=== PATIENT | female | born 1935 | race Caucasian/White ===

== ENCOUNTER 2017-01-22 00:33 | Emergency (ER) | payer MEDICARE, OTHER ==
[~2017-01-22] VITALS: Ht 157.5 cm; Wt 67.8 kg
[2017-01-22 00:33] VITALS: Ht 157.5 cm; Wt 67.8 kg
[~2017-01-22 00:33] MED LIST: ASPI-557 PO; CEFD300C3 PO; DILT120C4 PO; FAMO20TA6 PO; HYDR25TA PO; LEVO88TA41 PO; LISI-621 PO; MULT-65 PO; SERT-80 PO
--- OUTSIDE RECORDS SUMMARY | 2017-01-22 00:37 | XMS REPORT | Continuity of Care Document ---
Author Author [facility] Organization [facility] Address Unknown Phone Unavailable Allergies Medications Problems Procedures Results Test Result Range METABOLIC PANEL, BASIC - 06/29/12 14:25 POTASSIUM 3.6 mmol/L 3.5-5.3 EST GFR (MDRD) > 60 mL/min > 59 ANION GAP 7 mmol/L 5-15 EST CrCl (CG) 54 mL/min > 59 GLUCOSE 110 mg/dL 70-99 CALCIUM 9.1 mg/dL 8.5-10.1 BLOOD UREA NITROGEN 15 mg/dL 7-20 CREATININE 0.7 mg/dL 0.6-1.0 SODIUM 139 mmol/L 135-148 CHLORIDE 103 mmol/L 98-110 CARBON DIOXIDE 29 mmol/L 21-32 CBC - 06/29/12 14:25 MEAN CELL HGB 30.1 pg 27.0-33.0 MEAN CELL HGB CONCENTRATION 34.5 g/dl 32.0-36.0 MEAN CELL VOLUME 87.4 fl 80.0-100.0 RED BLOOD CELL 4.61 m/cumm 4.00-6.00 RED CELL DISTRIBUTION WIDTH 13.1 % 11.0- 15.6 WHITE BLOOD CELL 7.3 k/cumm 5.0-10.0 HEMOGLOBIN 13.9 gm/dL 12.0-16.0 HEMATOCRIT 40.3 % 37.0-47.0 PLATELET COUNT 258 k/cumm 150-450 HGB HCT - 07/04/12 12:12 MEAN CELL VOLUME 81.3 fl 80.0-100.0 HEMOGLOBIN 14.6 gm/dL 12.0-16.0 HEMATOCRIT 40.4 % 37.0-47.0 Encounters ACCT No. Visit Date/Time Discharge Status Pt. Type Provider Facility Loc./Unit Complaint [id number] 07/04/2012 05:14:00 2011 13:45:00 DIS Outpatient Roberto PATINO, Andreas Smith [facility] W.OPRA [id number] 06/29/2012 13:34:00 2011 13:34:00 DIS Outpatient Roberto PATINO, [facility] ADRIAN
--- OUTSIDE RECORDS SUMMARY | 2017-01-22 00:37 | XMS REPORT | Continuity of Care Document ---
Author Author Ivan [facility] Organization [facility] Address Unknown Phone Unavailable Support Name Relationship Address Phone OLIVERIOVERA COYNE DO Caregiver [address] [place] [phone] SHIRA ESPINOZA MD Caregiver [address] [place] [address] PAUL ALEXANDER Next Of Kin Unknown [phone] CELL Insurance Providers Payer Name Policy Number Subscriber Name Relationship Medicare [id number] Cheryl Lares 19 Self [facility] Sbc/b [id number] Cheryl Lares 19 Self Advance Directives Directive Response Recorded Date/Time Advanced Directives Type DNR Documentation Living Will DPOA for Healthcare 7:57pm Ordered Resuscitation Status Full Code 03/09/14 7:10pm Resuscitation Documents on File Y "I DO WANT TO BE RESUSCITATED ON THIS VISIT " 03/09/14 7:57pm Problems Medical Problems Problem Onset Date Status VOMITING/DIARRHEA Unknown Active Diarrhea Unknown Active Vomiting Unknown Active Chest pain, rule out acute myocardial infarction Unknown Active Sciatic nerve pain Unknown Active Sciatic nerve pain Unknown Active Lumbar disc herniation with radiculopathy 09/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 Dizziness Unknown Active Vomiting Unknown Active Medications Medication Dose Route Sig Days/Qty Instructions Order Date Discontinued Date Status Levothyroxine Sodium 88 Mcg PO BEFORE BREAKFAST 1 Qty 11/18/13 Active Lisinopril/Hydrochlorothiazide 1 Tab PO TWICE A DAY 11/18/13 Active Sertraline Hcl 50 Mg PO DAILY 11/18/13 Active Aspirin 325 Mg PO DAILY 11/18/13 03/10/14 Discontinued Diltiazem Hcl 120 Mg PO DAILY 03/09/14 Active Famotidine 20 Mg PO BEDTIME 03/09/14 Active Hydrocodone/Acetaminophen 1 Tab PO Q4H 09/03/14 09/06/14 Discontinued Ibuprofen 4 Tab PO Every 8 Hours PRN PAIN 3 Days 09/03/14 09/06/14 Discontinued Hydrocodone/Acetaminophen 1-2 Tab PO Every 6 Hours PRN PAIN 60 Qty 01/15 Active Potassium Chloride 20 Meq PO TWICE DAILY WITH MEALS 40 Qty 09/06/14 Active Multivitamin 1 Tab PO DAILY 11/03/14 Active Aspirin 1 Tab PO DAILY 11/03/14 Active Ibuprofen 1 Tab PO NEEDED PRN 11/03/14 Active Calcium Carbonate 11/03/14 Active Social History Social History Problem Response Recorded Date/Time Hx Alcohol Use No 11/03/2014 6:57pm Has the pt used tobacco in the last 12 months No 09/04/2014 3:54pm Tobacco Usage none 03/10/2014 12:53am Query Response Start Date Stop Date Smoking Status Never smoker Hospital Discharge Instructions Instructions: Care Instructions: Reason for Hospitalization: INTRACTABLE BACK PAIN I was in the hospital because (patient own words): "I HAVE INTRACTABLE AND LEFT LEG PAIN" Follow Up Appointments: Follow up with Dr. Kaur tomorrow (Sep.07) at 1:00pm, in his office located at [address] [place] [address] [facility] [place] [address] . Follow up with Dr. Ballesteros in her office on 09/13/2014 at 3:00pm. Patient Instructions: Bring the disk copy of your MRI results to your doctor appointment with Dr. Kaur. General Information: Take Potassium 20mEq 1 po 2 x a day x 3 days then daily. Will check BMP next week in office. Condition at time of discharge: Good Notify Physician If: any further stroke symptoms Condition at time of discharge: Good 12.6 Congenital Heart Disease Screening Result: Pass Plan of Care Discharge Date 09/06/14 3:20pm Instructions/Education Provided DI for Spinal and Epidural Anesthesia DI for Herniated Disc Prescriptions See Medications Section Functional Status Query Response Date Recorded Physical Hygiene Self November 03, 2014 6:57pm Disabilities Hearing March 10, 2014 5:15pm Devices Used Dentures March 10, 2014 5:15pm Dressing Self March 10, 2014 5:15pm Ambulation Self March 10, 2014 5:15pm Diet Self March 10, 2014 5:15pm Mental Status Alert Oriented March 10, 2014 5:15pm Disabilities Hearing March 10, 2014 5:15pm Devices Used Dentures March 10, 2014 5:15pm Physical Hygiene Self November 03, 2014 6:57pm Dressing Self March 10, 2014 5:15pm Ambulation Self March 10, 2014 5:15pm Diet Self March 10, 2014 5:15pm Allergies, Adverse Reactions, Alerts Allergen Type Severity Reaction Status Last Updated Phenytoin Sodium Extended Adverse Reaction Unknown Active 11/03/14 phenytoin sodium Adverse Reaction Unknown Active 11/03/14 Penicillin Adverse Reaction Unknown Active 11/03/14 Immunizations Name Given Type Hx Influenza Vaccination Y 2013 Historical Hx Pneumococcal Vaccination No Historical Hx Influenza Vaccination Y 2013 Historical Vital Signs Acute Vital Signs Vital Response Date/Time Temperature (Fahrenheit) 97.4 deg F (96.8 - 99.1) Temperature (Calculated Celsius) 36.48672 degrees C (36.0 - 37.3) Pulse Rate (adult) 76 bpm (60 - 100) Respiratory Rate 12 breaths/min (10 - 20) O2 Sat by Pulse Oximetry 98 % (90 - 100) Blood Pressure 185/85 mm Hg Height 5 ft 2 in Weight 155 lb Body Mass Index 28.0 kg/m^2 Results Test Source Date Result Interp. Ref. Range Comments Activated Partial Thromboplast Time March 09, 2014 4:25pm 29.1 SEC N 24- 36 Alanine Aminotransferase (ALT/SGPT) November 03, 2014 12:00am 31 U/L N 9- 52 Albumin November 03, 2014 12:00am 3.9 G/DL N 3.5-5.0 Albumin/Globulin Ratio November 03, 2014 12:00am 1.4 RATIO N 1.1-2.2 Alkaline Phosphatase November 03, 2014 12:00am 107 U/L N 38-126 Anion Gap November 03, 2014 12:00am 13 MEQ/L N 5-15 Aspartate Amino Transf (AST/SGOT) November 03, 2014 12:00am 32 U/L N 14- 36 BUN/Creatinine Ratio November 03, 2014 12:00am 28 RATIO H 6-26 Basophils # (Auto) November 03, 2014 12:00am 0.0 T/MM3 N 0-0.2 Basophils (%) (Auto) November 03, 2014 12:00am 0.4 % N 0-2 Blood Urea Nitrogen November 03, 2014 12:00am 17.0 MG/DL N 7-17 Calcium Level November 03, 2014 12:00am 9.2 MG/DL N 8.4-10.2 Calculated Osmolality November 03, 2014 12:00am 272 MOSM/KG N 261-280 Carbon Dioxide Level November 03, 2014 12:00am 27 MEQ/L N 22-30 Chemistry Specimen Hemolysis November 03, 2014 12:00am < 15 0-25 0-25 : No Hemolysis.26-70: Slight Hemolysis - can falsely elevate K and Urine Protein. 71-285: Moderate Hemolysis - can falsely elevate K, Troponin I, CA 19-9, PTH, CSF GLucose, and Urine Protein, and can falsely decrease Phenytoin. 286-999: Gross Hemolysis - can falsely elevate K, Troponin I, CA 19-9, PTH, CSF Glucose, and Urine Protine, and can falsely decrease Phenytoin. Recommend specimen recollection. Chloride Level November 03, 2014 12:00am 100 MEQ/L N 98-107 Creatinine November 03, 2014 12:00am 0.6 MG/DL L 0.7-1.2 Eosinophils # (Auto) November 03, 2014 12:00am 0.4 T/MM3 N 0-0.5 Eosinophils # (Manual) September 09, 2010 4:04am 0.2 T/MM3 N 0-0.5 Eosinophils % (Manual) September 09, 2010 4:04am 1.0 % N 0-4 Eosinophils (%) (Auto) November 03, 2014 12:00am 3.4 % N 0-4 Globulin November 03, 2014 12:00am 2.8 G/DL N 2.4-3.6 Glomerular Filtration Rate Calc November 03, 2014 12:00am 97 - Glucose Level November 03, 2014 12:00am 114 MG/DL H 65-110 Hematocrit November 03, 2014 12:00am 39.2 % N 36-46 Hemoglobin November 03, 2014 12:00am 13.2 GM/DL N 12-16 Icterus Index November 03, 2014 12:00am < 2 0-7 Immature Granulocyte # (Auto) November 03, 2014 12:00am 0.04 T/MM3 H 0.00 -0.03 Immature Granulocyte % (Auto) November 03, 2014 12:00am 0.4 % N 0.0-0.5 Lipase November 18, 2013 11:35am 73 U/L N 23-300 Lymphocytes # (Auto) November 03, 2014 12:00am 3.3 T/MM3 N 1-4.8 Lymphocytes # (Manual) September 09, 2010 4:04am 0.5 T/MM3 L 1-4.8 Lymphocytes % (Manual) September 09, 2010 4:04am 3.0 % L 23-45 Lymphocytes (%) (Auto) November 03, 2014 12:00am 31.5 % N 23-45 Mean Corpuscular Hemoglobin November 03, 2014 12:00am 29.2 UUG N 26-34 Mean Corpuscular Hemoglobin Concent November 03, 2014 12:00am 33.7 GM/DL N 31-37 Mean Corpuscular Volume November 03, 2014 12:00am 86.7 UM3 N 80-100 Mean Platelet Volume November 03, 2014 12:00am 10.7 UM3 N 9.4-12.4 Monocytes # (Auto) November 03, 2014 12:00am 0.8 T/MM3 N 0-0.8 Monocytes # (Manual) September 09, 2010 4:04am 0.8 T/MM3 N 0-0.8 Monocytes % (Manual) September 09, 2010 4:04am 5.0 % N 0-9.0 Monocytes (%) (Auto) November 03, 2014 12:00am 7.3 % N 0-9.0 IR-Ouk-Z-Type Natriuretic Peptide March 09, 2014 4:25pm 170 PG/ML N 0- 175 Rule in cut points: <50 years old=450; 50-75 years old=900; >75 years old=1800; When utilizing ProBNP rule-in cut points, adjustment for impaired renal function is typically not required. Neutrophils # (Auto) November 03, 2014 12:00am 6.0 T/MM3 N 1.8-7.7 Neutrophils # (Manual) September 09, 2010 4:04am 14.3 T/MM3 H 1.8-7.7 Neutrophils % (Manual) September 09, 2010 4:04am 91.0 % H 33-66 Neutrophils (%) (Auto) November 03, 2014 12:00am 57.0 % N 33-66 Platelet Count November 03, 2014 12:00am 253 T/MM3 N 130-400 Potassium Level November 03, 2014 12:00am 3.7 MEQ/L N 3.6-5 Prothromb Time International Ratio March 09, 2014 4:25pm 0.94 N 0.81- 1.09 THERAPUTIC RANGE=2.00-3.00 FOR ANTI-THROMBOSIS THERAPUTIC RANGE=2.50- 3.50 FOR IMPLANTED VALVE RDW Standard Deviation November 03, 2014 12:00am 40.7 FL N 36.9-50.2 Red Blood Count November 03, 2014 12:00am 4.52 M/MM3 N 4.00-5.20 Sodium Level November 03, 2014 12:00am 140 MEQ/L N 134-144 Total Bilirubin November 03, 2014 12:00am 0.60 MG/DL N 0.20-1.30 Total Protein November 03, 2014 12:00am 6.7 G/DL N 6.3-8.2 Troponin I November 03, 2014 12:00am < 0.012 ng/ml 0-0.12 Turbidity November 03, 2014 12:00am < 20 0-20 Urinalysis Comment November 03, 2014 7:30pm Microscopic not ind. - Has specimen been collected/obtained? Y Urine Bilirubin November 03, 2014 7:30pm Negative - Has specimen been collected/obtained? Y Urine Blood November 03, 2014 7:30pm Negative - Has specimen been collected/obtained? Y Urine Collection Type November 03, 2014 7:30pm Voided-not cc-midstr - Has specimen been collected/obtained? Y Urine Color November 03, 2014 7:30pm Yellow - Has specimen been collected/obtained? Y Urine Glucose (UA) November 03, 2014 7:30pm Negative - Has specimen been collected/obtained? Y Urine Ketones November 03, 2014 7:30pm Negative - Has specimen been collected/obtained? Y Urine Leukocyte Esterase November 03, 2014 7:30pm Negative - Has specimen been collected/obtained? Y Urine Nitrite November 03, 2014 7:30pm Negative - Has specimen been collected/obtained? Y Urine Protein November 03, 2014 7:30pm Negative - Has specimen been collected/obtained? Y Urine Specific [place] November 03, 2014 7:30pm <=1.005 L - Has specimen been collected/obtained? Y Urine Turbidity November 03, 2014 7:30pm Clear - Has specimen been collected/obtained? Y Urine Urobilinogen November 03, 2014 7:30pm 0.2 EU/DL - Has specimen been collected/obtained? Y Urine pH November 03, 2014 7:30pm 6.0 - Has specimen been collected/ obtained? Y White Blood Count November 03, 2014 12:00am 10.5 T/MM3 N 4.5-11.0 Name: CHERYL LARES Unit #: [id number] : 1935 Sex: F Loc / Svc: SAM DOS: 10/08/14 Signed Report #: [id number] DIAGNOSTIC IMAGING REPORT TYPE OF EXAM: CT CHEST W/O CONTRAST Dictated By: FRANCISCO WEST MD INDICATION: ITS.REASON: 793.[address] CHEST W/O CONTRAST: Comparison: Chest CT dated March 21, 2014 and November 22, [address] abdomen and pelvis dated October 24, 2012 Technique: Axial CT images were performed through the chest without intravenous contrast. Findings: Round well-circumscribed right upper lobe pulmonary nodule is stable in size at 1.1 x 1 cm in size on axial image #16. This is unchanged since November 2013. Calcified granuloma in the anterior left upper lobe is again noted. No new pulmonary nodules or masses appreciated. Lungs are otherwise clear. No pleural effusion or pneumothorax. The central airways are patent. No axillary or mediastinal lymphadenopathy. Heart and great vessels are unchanged. Calcified left hilar lymph nodes are unchanged. Heart size is normal. No pericardial effusion. The upper abdomen shows granulomas in the liver and spleen. Tiny stable right adrenal adenoma which is unchanged dating back to October 24, 2012 where it is subtly visible in retrospect. Impression: Stable appearance of the 1.1 cm right upper lobe pulmonary nodule. This most likely represents a noncalcified granuloma given the other findings present. Follow-up CT in November 2014 is recommended to document two years of stability . Procedures Procedure Status Date Provider(s) CT THORAX W/O DYE completed 10/08/14 X-RAY EXAM L-S SPINE 2/3 VWS completed 09/03/14 X-RAY EXAM OF PELVIS completed 09/03/14 THER/PROPH/DIAG INJ SC/IM completed 09/03/14 THER/PROPH/DIAG INJ SC/IM completed 09/03/14 EMERGENCY DEPT VISIT completed 09/03/14 [id number]"INJECTION, KETOROLAC TROMETHAMINE, PER 15 MG" completed 09/03/14085758"INJECTION, ORPHENADRINE CITRATE, UP TO 60 MG" completed 09/03/14 INJECT SPINE LUMBAR/SACRAL completed 09/05/14 CESARIO ANAYA MD Encounters Encounter Location Date/Time Departed Emergency Room [facility] 11/03/14 5:09pm Registered Clinic [facility] 10/08/14 2:29pm Discharged Inpatient [facility] 09/05/14 2:25pm Departed Emergency Room [facility] 09/03/14 9:07am Recent Diagnosis
--- OUTSIDE RECORDS SUMMARY | 2017-01-22 00:37 | XMS REPORT | Continuity of Care Document ---
Author Author Ivan [facility] Organization [facility] Address Unknown Phone Unavailable Support Name Relationship Address Phone OLIVERIOVERA COYNE DO Caregiver [address] [place] [phone] SHIRA ESPINOZA MD Caregiver [address] [place] [address] PAUL ALEXANDER Next Of Kin Unknown [phone] CELL Insurance Providers Payer Name Policy Number Subscriber Name Relationship Medicare [id number] Cheryl Lares 19 Self [facility] Sbc/b [id number] Cheryl Lares 19 Self Advance Directives Directive [...] Unknown Active Sciatic nerve pain Unknown Active Medications Medication Dose Route Sig Days/Qty Instructions Order Date Discontinued Date Status Levothyroxine Sodium 88 Mcg PO BEFORE BREAKFAST 1 Qty 11/18/13 Active Lisinopril/Hydrochlorothiazide 1 Tab PO TWICE A DAY 11/18/13 Active Sertraline Hcl 50 Mg PO DAILY 11/18/13 Active Dimenhydrinate 50 Mg PO PRN NAUSEA 11/18/13 Active Aspirin 325 Mg PO DAILY 11/18/13 03/10/14 Discontinued Diltiazem Hcl 120 Mg PO DAILY 03/09/14 Active Famotidine 20 Mg PO BEDTIME 03/09/14 Active Hydrocodone/Acetaminophen 1 Tab PO Q4H 09/03/14 Active Gabapentin 1 Cap PO THREE TIMES A DAY 09/03/14 Active Cyclobenzaprine HCl 1-2 Tab PO THREE TIMES A DAY PRN PAIN &/OR SPASM 30 Qty MAY CAUSE DROWSINESS OR DIZZINESS 09/03/14 Active Ibuprofen 4 Tab PO Every 8 Hours PRN PAIN 3 Days 09/03/14 Active Social History Social History Problem Response Recorded Date/Time Smoking Status Never smoker 03/09/2014 7:59pm Has the pt used tobacco in the last 12 months No 03/09/2014 7:59pm Query Response Start Date Stop Date Smoking Status Never smoker Hospital Discharge Instructions No hospital discharge instructions. Plan of Care No plan of care. Functional Status Query Response Date Recorded Physical Hygiene Self September 03, 2014 9:29am Disabilities Hearing March 10, 2014 5:15pm Devices Used Dentures March 10, 2014 5:15pm Dressing Self March 10, 2014 5:15pm Ambulation Self March 10, 2014 5:15pm Diet Self March 10, 2014 5:15pm Mental Status Alert Oriented March 10, 2014 5:15pm Disabilities Hearing March 10, 2014 5:15pm Devices Used Dentures March 10, 2014 5:15pm Physical Hygiene Self September 03, 2014 9:29am Dressing Self March 10, 2014 5:15pm Ambulation Self March 10, 2014 5:15pm Diet Self March 10, 2014 5:15pm Allergies, Adverse Reactions, Alerts Allergen Type Severity Reaction Status Last Updated Phenytoin Sodium Extended Adverse Reaction Unknown Active 09/03/14 phenytoin sodium Adverse Reaction Unknown Active 09/03/14 Penicillin Adverse Reaction Unknown Active 09/03/14 Immunizations Name Given Type Hx Influenza Vaccination No Historical Hx Pneumococcal Vaccination No Historical Hx Influenza Vaccination No Historical Vital Signs Acute Vital Signs Vital Response Date/Time Temperature (Fahrenheit) 97.3 deg F (96.8 - 99.1) Temperature (Calculated Celsius) 36.51548 degrees C (36.0 - 37.3) Pulse Rate (adult) 63 bpm (60 - 100) Respiratory Rate 16 breaths/min (10 - 20) O2 Sat by Pulse Oximetry 97 % (90 - 100) Blood Pressure 177/74 mm Hg Height 5 ft 4 in Weight 187 lb Body Mass Index 32.0 kg/m^2 Results Test Source Date Result Interp. Ref. Range Comments Activated Partial Thromboplast Time March 09, 2014 4:25pm 29.1 SEC N 24- 36 Alanine Aminotransferase (ALT/SGPT) March 09, 2014 4:25pm 31 U/L N 9-52 Albumin March 09, 2014 4:25pm 3.7 G/DL N 3.5-5.0 Albumin/Globulin Ratio March 09, 2014 4:25pm 1.4 RATIO N 1.1-2.2 Alkaline Phosphatase March 09, 2014 4:25pm 88 U/L N 38-126 Anion Gap March 10, 2014 4:26am 7 MEQ/L N 5-15 Aspartate Amino Transf (AST/SGOT) March 09, 2014 4:25pm 30 U/L N 14-36 BUN/Creatinine Ratio March 10, 2014 4:26am 23 RATIO N 6-26 Basophils # (Auto) March 09, 2014 4:25pm 0.0 T/MM3 N 0-0.2 Basophils (%) (Auto) March 09, 2014 4:25pm 0.4 % N 0-2 Blood Urea Nitrogen March 10, 2014 4:26am 14.0 MG/DL N 7-17 Calcium Level March 10, 2014 4:26am 8.6 MG/DL N 8.4-10.2 Calculated Osmolality March 10, 2014 4:26am 269 MOSM/KG N 261-280 Carbon Dioxide Level March 10, 2014 4:26am 29 MEQ/L N 22-30 Chloride Level March 10, 2014 4:26am 104 MEQ/L N 98-107 Creatinine March 10, 2014 4:26am 0.6 MG/DL L 0.7-1.2 Eosinophils # (Auto) March 09, 2014 4:25pm 0.3 T/MM3 N 0-0.5 Eosinophils # (Manual) September 09, 2010 4:04am 0.2 T/MM3 N 0-0.5 Eosinophils % (Manual) September 09, 2010 4:04am 1.0 % N 0-4 Eosinophils (%) (Auto) March 09, 2014 4:25pm 3.7 % N 0-4 Globulin March 09, 2014 4:25pm 2.7 G/DL N 2.4-3.6 Glucose Level March 10, 2014 4:26am 88 MG/DL N 65-110 Hematocrit March 09, 2014 4:25pm 38.8 % N 36-46 Hemoglobin March 09, 2014 4:25pm 13.5 GM/DL N 12-16 Lipase November 18, 2013 11:35am 73 U/L N 23-300 Lymphocytes # (Auto) March 09, 2014 4:25pm 2.1 T/MM3 N 1-4.8 Lymphocytes # (Manual) September 09, 2010 4:04am 0.5 T/MM3 L 1-4.8 Lymphocytes % (Manual) September 09, 2010 4:04am 3.0 % L 23-45 Lymphocytes (%) (Auto) March 09, 2014 4:25pm 26.8 % N 23-45 Mean Corpuscular Hemoglobin March 09, 2014 4:25pm 29.3 UUG N 26-34 Mean Corpuscular Hemoglobin Concent March 09, 2014 4:25pm 34.8 GM/DL N 31 -37 Mean Corpuscular Volume March 09, 2014 4:25pm 84.2 UM3 N 80-100 Mean Platelet Volume March 09, 2014 4:25pm 10.2 UM3 N 9.4-12.4 Monocytes # (Auto) March 09, 2014 4:25pm 0.6 T/MM3 N 0-0.8 Monocytes # (Manual) September 09, 2010 4:04am 0.8 T/MM3 N 0-0.8 Monocytes % (Manual) September 09, 2010 4:04am 5.0 % N 0-9.0 Monocytes (%) (Auto) March 09, 2014 4:25pm 8.1 % N 0-9.0 Neutrophils # (Auto) March 09, 2014 4:25pm 4.7 T/MM3 N 1.8-7.7 Neutrophils # (Manual) September 09, 2010 4:04am 14.3 T/MM3 H 1.8-7.7 Neutrophils % (Manual) September 09, 2010 4:04am 91.0 % H 33-66 Neutrophils (%) (Auto) March 09, 2014 4:25pm 60.9 % N 33-66 Platelet Count March 09, 2014 4:25pm 260 T/MM3 N 130-400 Potassium Level March 10, 2014 4:26am 3.2 MEQ/L L 3.6-5 Prothromb Time International Ratio March 09, 2014 4:25pm 0.94 N 0.81- 1.09 THERAPUTIC RANGE=2.00-3.00 FOR ANTI-THROMBOSIS THERAPUTIC RANGE=2.50- 3.50 FOR IMPLANTED VALVE RDW Standard Deviation March 09, 2014 4:25pm 37.7 FL N 36.9-50.2 Red Blood Count March 09, 2014 4:25pm 4.61 M/MM3 N 4.00-5.20 Sodium Level March 10, 2014 4:26am 140 MEQ/L N 134-144 Total Bilirubin March 09, 2014 4:25pm 0.10 MG/DL L 0.20-1.30 Total Protein March 09, 2014 4:25pm 6.4 G/DL N 6.3-8.2 Troponin I March 10, 2014 4:26am < 0.012 ng/ml 0-0.12 Urine Bilirubin November 18, 2013 12:54pm Negative - Has specimen been collected/obtained? Y Urine Blood November 18, 2013 12:54pm Negative - Has specimen been collected/obtained? Y Urine Collection Type November 18, 2013 12:54pm Cleancatch-midstream - Has specimen been collected/obtained? Y Urine Color November 18, 2013 12:54pm Yellow - Has specimen been collected/obtained? Y Urine Glucose (UA) November 18, 2013 12:54pm Negative - Has specimen been collected/obtained? Y Urine Ketones November 18, 2013 12:54pm Negative - Has specimen been collected/obtained? Y Urine Leukocyte Esterase November 18, 2013 12:54pm Negative - Has specimen been collected/obtained? Y Urine Nitrite November 18, 2013 12:54pm Negative - Has specimen been collected/obtained? Y Urine Protein November 18, 2013 12:54pm Negative - Has specimen been collected/obtained? Y Urine Specific [place] November 18, 2013 12:54pm <=1.005 L - Has specimen been collected/obtained? Y Urine Turbidity November 18, 2013 12:54pm Clear - Has specimen been collected/obtained? Y Urine Urobilinogen November 18, 2013 12:54pm 0.2 EU/DL - Has specimen been collected/obtained? Y Urine pH November 18, 2013 12:54pm 6.0 - Has specimen been collected/ obtained? Y White Blood Count March 09, 2014 4:25pm 7.8 T/MM3 N 4.5-11.0 Chemistry Specimen Hemolysis March 10, 2014 4:26am < 15 0-25 0-25: No Hemolysis.26-70: Slight Hemolysis - can falsely elevate K and Urine Protein. 71-285: Moderate Hemolysis - can falsely elevate K, Troponin I, CA 19-9, PTH, CSF GLucose, and Urine Protein, and can falsely decrease Phenytoin. 286-999: Gross Hemolysis - can falsely elevate K, Troponin I, CA 19-9, PTH, CSF Glucose, and Urine Protine, and can falsely decrease Phenytoin. Recommend specimen recollection. Turbidity March 10, 2014 4:26am < 20 0-20 Glomerular Filtration Rate Calc March 10, 2014 4:26am 97 - Immature Granulocyte # (Auto) March 09, 2014 4:25pm 0.01 T/MM3 N 0.00- 0.03 Immature Granulocyte % (Auto) March 09, 2014 4:25pm 0.1 % N 0.0-0.5 Icterus Index March 10, 2014 4:26am < 2 0-7 ED-Czw-M-Type Natriuretic Peptide March 09, 2014 4:25pm 170 PG/ML N 0- 175 Rule in cut points: <50 years old=450; 50-75 years old=900; >75 years old=1800; When utilizing ProBNP rule-in cut points, adjustment for impaired renal function is typically not required. Procedures No known history of procedures. Encounters Encounter Location Date/Time Departed Emergency Room [facility] 09/03/14 9:07am Recent Diagnosis
--- OUTSIDE RECORDS SUMMARY | 2017-01-22 00:37 | XMS REPORT | Continuity of Care Document ---
Author Author [facility] Organization [facility] Address Unknown Phone Unavailable Support Name Relationship Address Phone VERA DENNEY DO Caregiver [address] [place] [phone] PAUL ALEXANDER Next Of Kin Unknown [phone] CELL Insurance Providers Payer Name Policy Number Subscriber Name Relationship Medicare [id number] Cheryl Lares 19 Self [facility] [id number] Cheryl Lares 19 Self Advance Directives Directive Response Recorded Date/Time Advanced Directives Type DNR Documentation Living Will DPOA for Healthcare 7:57pm Ordered Resuscitation Status Full Code 03/09/14 7:10pm Resuscitation Documents on File Y "I DO WANT TO BE RESUSCITATED ON THIS VISIT " 03/09/14 7:57pm Chief Complaint and Reason for Visit Chief Complaint INTRACTABLE BACK PAIN Reason for Visit Lumbar disc herniation with radiculopathy Problems Medical Problems Problem Onset Date Status VOMITING/DIARRHEA Unknown Active Diarrhea Unknown Active Vomiting Unknown Active Chest pain, rule out acute myocardial infarction Unknown Active Sciatic nerve pain Unknown Active Sciatic nerve pain Unknown Active Lumbar disc herniation with radiculopathy 09/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 Medications Medication Dose Route Sig Days/Qty [...] 1 Tab PO Q4H 09/03/14 09/06/14 Discontinued Cyclobenzaprine HCl 1-2 Tab PO THREE TIMES A DAY PRN PAIN &/OR SPASM 30 Qty MAY CAUSE DROWSINESS OR DIZZINESS 09/03/14 Active Ibuprofen 4 Tab PO Every 8 Hours PRN PAIN 3 Days 09/03/14 09/06/14 Discontinued Hydrocodone/Acetaminophen 1-2 Tab PO Every 6 Hours PRN PAIN 60 Qty 01/15 Active Potassium Chloride 20 Meq PO TWICE DAILY WITH MEALS 40 Qty 09/06/14 Active Social History Social History Problem Response Recorded Date/Time Has the pt used tobacco in the [...] at 1:00pm, in his office located at [facility] [address] [place] [address] . Follow up with Dr. Denney in her office on 09/13/2014 at 3:00pm. Patient Instructions: Bring the disk copy of your MRI results to your doctor appointment with Dr. Kaur. General Information: Take Potassium 20mEq 1 po 2 x a day x 3 days then daily. Will check BMP next week in office. Condition at time of discharge: Good port with alchol after draing them. Empty bags when they look full to avoid leaking. Always keep bag secured in place. Condition at time of discharge: Good Condition at time of discharge: Good Plan of Care Discharge Date 09/06/14 3:20pm Disposition 01 DISCHARGED HOME, SELF-CARE Instructions/Education Provided DI for Spinal and Epidural Anesthesia DI for Herniated Disc Prescriptions See Medications Section Functional Status Query Response Date Recorded Physical Hygiene Self September 06, 2014 2:16pm Disabilities Hearing March 10, 2014 5:15pm Devices Used Dentures March 10, 2014 5:15pm Dressing Self March 10, 2014 5:15pm Ambulation Self March 10, 2014 5:15pm Diet Self March 10, 2014 5:15pm Mental Status Alert Oriented March 10, 2014 5:15pm Disabilities Hearing March 10, 2014 5:15pm Devices Used Dentures March 10, 2014 5:15pm Physical Hygiene Self September 06, 2014 2:16pm Dressing Self March 10, 2014 5:15pm Ambulation Self March 10, 2014 5:15pm Diet Self March 10, 2014 5:15pm Allergies, Adverse Reactions, Alerts Allergen Type Severity Reaction Status Last Updated Phenytoin Sodium Extended Adverse Reaction Unknown Active 09/04/14 phenytoin sodium Adverse Reaction Unknown Active 09/04/14 Penicillin Adverse Reaction Unknown Active 09/04/14 Immunizations Name Given Type Hx Influenza Vaccination Y 2013 Historical Hx Pneumococcal Vaccination No Historical Hx Influenza Vaccination Y 2013 Historical Vital Signs Acute Vital Signs Vital Response Date/Time Temperature (Fahrenheit) 96.8 deg F (96.8 - 99.1) Temperature (Calculated Celsius) 36.23132 degrees C (36.0 - 37.3) Temperature Source Oral Pulse Rate (adult) 62 bpm (60 - 100) Respiratory Rate 14 breaths/min (10 - 20) O2 Sat by Pulse Oximetry 99 % (90 - 100) Oxygen Delivery Method Room Air Blood Pressure 159/79 mm Hg Blood Pressure Source Automatic Cuff Height 5 ft 2 in Weight 155 lb Body Mass Index 28.0 kg/m^2 Results Test Source Date Result Interp. Ref. Range Comments Activated Partial Thromboplast Time March 09, 2014 4:25pm 29.1 SEC N 24- 36 Alanine Aminotransferase (ALT/SGPT) September 04, 2014 5:55pm 38 U/L N 9- 52 Albumin September 04, 2014 5:55pm 3.9 G/DL N 3.5-5.0 Albumin/Globulin Ratio September 04, 2014 5:55pm 1.5 RATIO N 1.1-2.2 Alkaline Phosphatase September 04, 2014 5:55pm 78 U/L N 38-126 Anion Gap September 06, 2014 4:24am 6 MEQ/L N 5-15 Aspartate Amino Transf (AST/SGOT) September 04, 2014 5:55pm 33 U/L N 14- 36 BUN/Creatinine Ratio September 06, 2014 4:24am 26 RATIO N 6-26 Basophils # (Auto) September 06, 2014 4:24am 0.0 T/MM3 N 0-0.2 Basophils (%) (Auto) September 06, 2014 4:24am 0.5 % N 0-2 Blood Urea Nitrogen September 06, 2014 4:24am 18.0 MG/DL H 7-17 Calcium Level September 06, 2014 4:24am 9.2 MG/DL N 8.4-10.2 Calculated Osmolality September 06, 2014 4:24am 268 MOSM/KG N 261-280 Carbon Dioxide Level September 06, 2014 4:24am 33 MEQ/L H 22-30 Chemistry Specimen Hemolysis September 06, 2014 4:24am < 15 0-25 0-25 : No Hemolysis.26-70: [...] decrease Phenytoin. Recommend specimen recollection. Chloride Level September 06, 2014 4:24am 99 MEQ/L N 98-107 Creatinine September 06, 2014 4:24am 0.7 MG/DL N 0.7-1.2 Eosinophils # (Auto) September 06, 2014 4:24am 0.5 T/MM3 N 0-0.5 Eosinophils # (Manual) September 09, 2010 4:04am 0.2 T/MM3 N 0-0.5 Eosinophils % (Manual) September 09, 2010 4:04am 1.0 % N 0-4 Eosinophils (%) (Auto) September 06, 2014 4:24am 6.3 % H 0-4 Globulin September 04, 2014 5:55pm 2.6 G/DL N 2.4-3.6 Glomerular Filtration Rate Calc September 06, 2014 4:24am 81 - Glucose Level September 06, 2014 4:24am 101 MG/DL N 65-110 Hematocrit September 06, 2014 4:24am 36.7 % N 36-46 Hemoglobin September 06, 2014 4:24am 12.9 GM/DL N 12-16 Icterus Index September 06, 2014 4:24am < 2 0-7 Immature Granulocyte # (Auto) September 06, 2014 4:24am 0.01 T/MM3 N 0.00 -0.03 Immature Granulocyte % (Auto) September 06, 2014 4:24am 0.1 % N 0.0-0.5 Lipase November 18, 2013 11:35am 73 U/L N 23-300 Lymphocytes # (Auto) September 06, 2014 4:24am 2.0 T/MM3 N 1-4.8 Lymphocytes # (Manual) September 09, 2010 4:04am 0.5 T/MM3 L 1-4.8 Lymphocytes % (Manual) September 09, 2010 4:04am 3.0 % L 23-45 Lymphocytes (%) (Auto) September 06, 2014 4:24am 24.0 % N 23-45 Mean Corpuscular Hemoglobin September 06, 2014 4:24am 29.8 UUG N 26-34 Mean Corpuscular Hemoglobin Concent September 06, 2014 4:24am 35.1 GM/DL N 31-37 Mean Corpuscular Volume September 06, 2014 4:24am 84.8 UM3 N 80-100 Mean Platelet Volume September 06, 2014 4:24am 10.3 UM3 N 9.4-12.4 Monocytes # (Auto) September 06, 2014 4:24am 0.7 T/MM3 N 0-0.8 Monocytes # (Manual) September 09, 2010 4:04am 0.8 T/MM3 N 0-0.8 Monocytes % (Manual) September 09, 2010 4:04am 5.0 % N 0-9.0 Monocytes (%) (Auto) September 06, 2014 4:24am 7.6 % N 0-9.0 IU-Qcs-W-Type Natriuretic Peptide March 09, 2014 4:25pm 170 PG/ML N 0- 175 Rule in cut points: <50 years old=450; 50-75 years old=900; >75 years old=1800; When utilizing ProBNP rule-in cut points, adjustment for impaired renal function is typically not required. Neutrophils # (Auto) September 06, 2014 4:24am 5.2 T/MM3 N 1.8-7.7 Neutrophils # (Manual) September 09, 2010 4:04am 14.3 T/MM3 H 1.8-7.7 Neutrophils % (Manual) September 09, 2010 4:04am 91.0 % H 33-66 Neutrophils (%) (Auto) September 06, 2014 4:24am 61.5 % N 33-66 Platelet Count September 06, 2014 4:24am 208 T/MM3 N 130-400 Potassium Level September 06, 2014 4:24am 3.0 MEQ/L L 3.6-5 Prothromb Time International Ratio March 09, 2014 4:25pm 0.94 N 0.81- 1.09 THERAPUTIC RANGE=2.00-3.00 FOR ANTI-THROMBOSIS THERAPUTIC RANGE=2.50- 3.50 FOR IMPLANTED VALVE RDW Standard Deviation September 06, 2014 4:24am 37.8 FL N 36.9-50.2 Red Blood Count September 06, 2014 4:24am 4.33 M/MM3 N 4.00-5.20 Sodium Level September 06, 2014 4:24am 138 MEQ/L N 134-144 Total Bilirubin September 04, 2014 5:55pm 0.70 MG/DL N 0.20-1.30 Total Protein September 04, 2014 5:55pm 6.5 G/DL N 6.3-8.2 Troponin I March 10, 2014 4:26am < 0.012 ng/ml 0-0.12 Turbidity September 06, 2014 4:24am < 20 0-20 Urine Bilirubin November 18, 2013 12:54pm Negative [...] Has specimen been collected/obtained? Y Urine Specific [place] November 18, 2013 12:54pm <=1.005 L - Has specimen been collected/obtained? Y Urine Turbidity November 18, 2013 12:54pm Clear - Has specimen been collected/obtained? Y Urine Urobilinogen November 18, 2013 12:54pm 0.2 EU/DL - Has specimen been collected/obtained? Y Urine pH November 18, 2013 12:54pm 6.0 - Has specimen been collected/ obtained? Y White Blood Count September 06, 2014 4:24am 8.5 T/MM3 N 4.5-11.0 Name: CHERYL LARES Unit #: [id number] : 1935 Sex: F Loc / Svc: SRG DOS: Signed Report #: [id number] DIAGNOSTIC IMAGING REPORT TYPE OF EXAM: EPIDURAL INJ.SPINE W FLUO&CATH Dictated By: CESARIO ANAYA MD The patient has low back and radicular pain. The patient has not had any previous epidurals. The details of the procedure, including the benefits, risks, and alternatives were explained to the patient. All of their questions were answered. They stated that they understood and wished to proceed. Informed consent was then obtained. A pre-procedural pause was performed to confirm the correct patient and procedure. Utilizing aseptic technique, local lidocaine anesthetic, and fluoroscopic guidance throughout, a 22-gauge spinal needle was directed into the lumbar epidural space via an interlaminar approach at the L5-S1 level. Contrast was injected to assure proper positioning of the needle tip. A fluoroscopic image was then taken and archived. Subsequently, 120 mg Depo-Medrol and 3 mL normal saline was injected into the epidural space. The patient tolerated the procedure well. IMPRESSION: Successful lumbar epidural steroid injection. Juan Manuel Conway RPA/ performed this under my personal supervision. Procedures Procedure Status Date Provider(s) X-RAY EXAM L-S SPINE 2/3 VWS completed 09/03/14 X-RAY EXAM OF PELVIS completed 09/03/14 THER/PROPH/DIAG INJ SC/IM completed 09/03/14 THER/PROPH/DIAG INJ SC/IM completed 09/03/14 EMERGENCY DEPT VISIT completed 09/03/14 [id number]"INJECTION, KETOROLAC TROMETHAMINE, PER 15 MG" completed 09/03/14 [id number]"INJECTION, ORPHENADRINE CITRATE, UP TO 60 MG" completed 09/03/14 Encounters Encounter Location Date/Time Discharged Inpatient [facility] 09/05/14 2:25pm Departed Emergency Room [facility] 09/03/14 9:07am Recent Diagnosis Lumbar disc herniation with radiculopathy
--- NOTE | 2017-01-22 00:54 | ERPDOC ---
Departure Disposition Decision Date: Jan 22, 2017 Disposition Decision Time: 03:12 Disposition: 01 DISCHARGED HOME, SELF-CARE Impression Impression Impression: Primary Impression: Volume depletion Additional Impressions: Palpitations Bradycardia Severity: Mild Condition: Improved Seen By: Physician only Referrals: RONEN GILES MD (Family) Patient Instructions: Palpitations (ED) Problems/Meds/Labs Reviewed?: Yes Medications reviewed and manag: Yes Additional Instructions: Take your routine medications, diet, and exercise Return to ER for any significant worsening Follow up care ordered?: Yes Mental Status: Alert HPI - Cardiac General Stated Complaint: LOW PULSE Time Seen by Provider: 00:46 Source: patient Exam Limitations: no limitations HPI - Cardiac General Initial Comments Palpitations at home after doing yard work all day yesterday. Took bp at home that was normal, but noticed her pulse was low in the 40's. Pt walked around and her HR did improve, but she was concerned. No hx of CAD/KS, irregular pulse, lung problems, or CVA/ No other sx tonight. Occurred At: home Onset/Timing: Rapid Duration: 1 hr Severity: moderate Prior CP/Workup: no prior chest pain Nitro Today/Relief: no nitro taken today Aspirin Today: contraindicated Associated Symptoms: DENIES: chest pain, cough, diaphoresis, fever/chills, headaches, loss of appetite, malaise, nausea/vomiting, rash, seizure, shortness of breath, syncope, weakness Hx of Similar Symptoms: Yes (patient had similar symptoms when she was on digitalis many years ago) Allergies: Coded Allergies: Penicillins (Verified Allergy, Unknown, RASH, 10/05/16) Phenytoin Sodium Extended (Verified Adverse Reaction, Unknown, CAUSED LIVER ISSUES, 10/05/16) phenytoin sodium (Verified Adverse Reaction, Unknown, CAUSED LIVER ISSUES , 10/05/16) Past History Patient Medical History Problem List Updates: Paroxysmal atrial tachycardia Past Medical History Metabolic: hypercholesterolemia, hypertension GI: GERD Neurological: migraines Musculoskeletal: back pain Surgical History General: appendix, colonoscopy, gallbladder, other Cardiac: cardiac cath Reproductive/: hysterectomy Vaccines Hx Influenza Vaccination: Yes (FALL 2014) Hx Pneumococcal Vaccination: No Social History Smoking Status: Never smoker Does patient use chewing tobac: No Second Hand Exposure: No Substance Use Type: does not use Alcohol Intake: none Record Review Pertinent history updated: Yes Review of Systems Constitutional Constitutional: DENIES: appetite decrease, appetite increase, chills, dizziness , fever, weakness ENMT Ears: DENIES: pain Hearing: DENIES: hearing loss, tinnitus Balance: DENIES: vertigo Mouth/Throat: DENIES: change in swallowing, change in voice, hoarsness, painful swallowing, sore throat Cardiovascular Cardiac: DENIES: chest pain, dyspnea on exertion Rhythm/Rate: bradycardia, palpitations, DENIES: irregular beat, tachycardia Vascular: DENIES: pedal edema Pulmonary Respiratory: DENIES: cough, dyspnea, pleuritic chest pain GI Upper Abdomen: DENIES: dysphagia, heartburn/indigestion, nausea, pain, vomiting Lower Abdomen: DENIES: blood in stool, constipation, diarrhea, pain General: DENIES: burning, dysuria, frequency, pain, urgency Musculoskeletal General: DENIES: cramps, joint pain, joint swelling, pain, weakness Integumentary Skin: DENIES: rash, sores Neurological General: DENIES: headache, numbness, tingling, vertigo, weakness Psychiatric Psychiatric: DENIES: anxiety, depression, nervousness Physical Exam General General Nourishment: well nourished, well developed, appears stated age, no acute distress General Body Habitus: well groomed Vitals and Pain First Documented Vital Signs Date Time Temp Pulse Resp B/P Pulse Ox O2 Delivery O2 Flow Rate FiO2 01/22/17 00:33 97.1 72 20 174/80 97 Room Air Weight: Kilograms: Height (feet): 5 Height (inches): 1.50 Triage Pain Scale: RN VS reviewed by Provider: Yes Normal Exams: Head: Normocephalic w/o trauma Eyes: Pupils are PERRLA w/ EOMI, No scleral icterus, irritation, or foreign bodies noted ENMT: No facial trauma, nasal exudates, pharyngeal erythema, or exudates are noted Neck: Full range of motion, without adenopathy, JVD, bruits or thyromegaly Chest/Resp: Clear all sim, with good airflow, and symmetry bilaterally Abdomen: Bowel sounds positive, soft, non-tender, non-distended, no hepatosplenomegaly, masses or bruits noted Lymphatic: No lymphadenopathy, or lymphedema noted Musculoskeletal: No tenderness, or deformity noted, good range of motion, all extremities Integumentary: No rashes, hives, or bruising noted, hair and nails, without abnormality Neurologic: Patient is alert, and oriented, cranial nerves, motor/sensory/ cerebellar, exams w/o gross deficits, to observation Psychiatric: Patient exhibits, appropriate attention, emotion and affect Cardiovascular (brief) Cardiac: FOUND: regular rate, NOT FOUND: click, gallop, murmur, pedal edema, regular rhythm (regular rate and rhythm with frequent premature beats) Capillary Refill: <2 sec Pulses: all distal extremities, equal, strong Progress Results/Orders Orders Procedure Category Date Status Time EKG EKG 01/22/17 Logged 00:46 Iv Lock (Ed Only) EDM 01/22/17 Transmitted 00:53 Cbc W/Auto LAB 01/22/17 Complete Diff-Reflex Manual Cmp - Comprehensive LAB 01/22/17 Complete Metabolic Ua, Dip Wreflex LAB 01/22/17 Complete Microsc & Financial Management 00:53 Troponin I W LAB 01/22/17 Complete Hemolysis Index Magnesium LAB 01/22/17 Complete Normal Saline (Normal PHA 01/22/17 Complete Saline Iv) 01:00 Lab Results Laboratory Tests Test 01/22/17 01:27 01/22/17 02:25 White Blood Count 7.6T/MM3 Red Blood Count 4.74M/MM3 Hemoglobin 14.0GM/DL Hematocrit 40.8% Mean Corpuscular Volume 86.1UM3 Mean Corpuscular Hemoglobin 29.5UUG Mean Corpuscular Hemoglobin Concent 34.3GM/DL RDW Standard Deviation 39.7FL Platelet Count 226T/MM3 Mean Platelet Volume 9.8UM3 Immature Granulocyte % (Auto) 0.1% Neutrophils (%) (Auto) 53.7% Lymphocytes (%) (Auto) 34.1% Monocytes (%) (Auto) 7.5% Eosinophils (%) (Auto) 4.1% Basophils (%) (Auto) 0.5% Absolute Immature Granulocyte (auto 0.01T/MM3 Absolute Neutrophils (auto) 4.1T/MM3 Absolute Lymphocytes (auto) 2.6T/MM3 Absolute Monocytes (auto) 0.6T/MM3 Absolute Eosinophils (auto) 0.3T/MM3 Absolute Basophils (auto) 0.0T/MM3 Turbidity < 20 Sodium Level 144MEQ/L Potassium Level 3.3MEQ/L Chloride Level 102MEQ/L Carbon Dioxide Level 29MEQ/L Anion Gap 13MEQ/L Blood Urea Nitrogen 17.0MG/DL Creatinine 0.7MG/DL Glomerular Filtration Rate Calc 81 BUN/Creatinine Ratio 24RATIO Glucose Level 122MG/DL Calculated Osmolality 280MOSM/KG Calcium Level 9.2MG/DL Magnesium Level 2.0MG/DL Total Bilirubin 0.40MG/DL Icterus Index < 2 Aspartate Amino Transf (AST/SGOT) 24U/L Alanine Aminotransferase (ALT/SGPT) 25U/L Alkaline Phosphatase 96U/L Troponin I < 0.012ng/ml Total Protein 6.4G/DL Albumin 3.8G/DL Globulin 2.6G/DL Albumin/Globulin Ratio 1.5RATIO Chemistry Specimen Hemolysis < 15 Urine Collection Type Cleancatch-midstream Urine Color Yellow Urine Turbidity Clear Urine pH 7.0 Urine Specific [place] 1.010 Urine Protein Negative Urine Glucose (UA) Trace Urine Ketones Negative Urine Blood Trace-intact Urine Nitrite Negative Urine Bilirubin Negative Urine Urobilinogen 0.2EU/DL Urine Leukocyte Esterase Trace Urinalysis Comment Microscopic not ind. Medications Current ED Medications Sodium Chloride (Normal Saline IV) 1,000 ml @ 0 mls/hr Q0M ONCE IV Last administered on 01/22/17t 01:17; Start 01/22/17 at 01:00; Stop 01/22/17 at 01:01 ; Status DC Progress Progress EKG shows sinus rhythm with occasional supraventricular premature complexes CBC normal CMP normal Troponin normal UA normal Patient has had no recurrence of symptoms, although she does continue to have her "normal" irregular pulse at 67. DUSTIN FLORES MD Jan 22, 2017 00:54
[2017-01-22] MEDS ORDERED: NORMAL SALINE 1,000 ML IV ONE (01:00)
--- OUTSIDE RECORDS SUMMARY | 2017-01-22 01:03 | XMS REPORT | Continuity of Care Document ---
Author Author [facility] Organization [facility] Address Unknown Phone Unavailable Allergies Medications Problems [...] Status Pt. Type Provider Facility Loc./Unit Complaint [id number] 07/04/2012 05:14:00 2011 13:45:00 DIS Outpatient Roberto PATINO, Andreas Smith [facility] W.OPRA [id number] 06/29/2012 13:34:00 2011 13:34:00 DIS Outpatient Roberto PATINO, [facility] ADRIAN
--- OUTSIDE RECORDS SUMMARY | 2017-01-22 01:03 | XMS REPORT | Continuity of Care Document ---
Author Author [facility] Organization [facility] Address Unknown Phone Unavailable Support Name Relationship Address Phone OLIVERIOVERA COYNE DO Caregiver [address] [place] [phone] SHIRA ESPINOZA MD Caregiver [address] [place] [address] PAUL ALEXANDER Next Of Kin Unknown [phone] CELL Insurance Providers Payer Name Policy Number Subscriber Name Relationship Medicare [id number] Cheryl Lares 19 Self [facility] Sbc/b [id number] Cheryl Lares 19 Self Advance Directives Directive [...] F (96.8 - 99.1) Temperature (Calculated Celsius) 36.10112 degrees C (36.0 - 37.3) Pulse Rate [...] Has specimen been collected/obtained? Y Urine Specific [place] November 18, 2013 12:54pm <=1.005 L - [...] March 10, 2014 4:26am < 2 0-7 FD-Pbi-N-Type Natriuretic Peptide March 09, 2014 4:25pm 170 PG/ML N 0- 175 Rule in cut points: <50 years old=450; 50-75 years old=900; >75 years old=1800; When utilizing ProBNP rule-in cut points, adjustment for impaired renal function is typically not required. Procedures No known history of procedures. Encounters Encounter Location Date/Time Departed Emergency Room [facility] 09/03/14 9:07am Recent Diagnosis
--- OUTSIDE RECORDS SUMMARY | 2017-01-22 01:04 | XMS REPORT | Continuity of Care Document ---
Author Author [facility] Organization [facility] Address Unknown Phone Unavailable Support Name Relationship Address Phone VERA DENNEY DO Caregiver [address] [place] [phone] PAUL ALEXANDER Next Of Kin Unknown [phone] CELL Insurance Providers Payer Name Policy Number Subscriber Name Relationship Medicare [id number] Cheryl Lares 19 Self [facility] S[facility] [id number] Cheryl Lares 19 Self Advance Directives Directive [...] at 1:00pm, in his office located at [facility]. [employer] [address] [place] [address] . Follow up with Dr. Denney in her office on 09/13/2014 at 3:00pm. Patient Instructions: Bring the disk copy of your MRI results to your doctor appointment with Dr. Karu. General Information: Take Potassium 20mEq 1 po [...] F (96.8 - 99.1) Temperature (Calculated Celsius) 36.62392 degrees C (36.0 - 37.3) Temperature Source [...] 06, 2014 4:24am 7.6 % N 0-9.0 SC-Kbt-K-Type Natriuretic Peptide March 09, 2014 4:25pm 170 [...] Has specimen been collected/obtained? Y Urine Specific [place] November 18, 2013 12:54pm <=1.005 L - [...] N 4.5-11.0 Name: CHERYL LARES Unit #: [id number] : 1935 Sex: F Loc / Svc: SRG DOS: Signed Report #: [id number] DIAGNOSTIC IMAGING REPORT TYPE OF EXAM: EPIDURAL [...] completed 09/03/14 EMERGENCY DEPT VISIT completed 09/03/14 [id number]"INJECTION, KETOROLAC TROMETHAMINE, PER 15 MG" completed 09/03/14 [id number]"INJECTION, ORPHENADRINE CITRATE, UP TO 60 MG" completed 09/03/14 Encounters Encounter Location Date/Time Discharged Inpatient [facility] 09/05/14 2:25pm Departed Emergency Room [facility] 09/03/14 9:07am Recent Diagnosis Lumbar disc herniation with radiculopathy
--- OUTSIDE RECORDS SUMMARY | 2017-01-22 01:04 | XMS REPORT | Continuity of Care Document ---
Author Author [facility] Organization [facility] Address Unknown Phone Unavailable Support Name Relationship Address Phone OLIVERIOVERA COYNE DO Caregiver [address] [place] [phone] SHIRA ESPINOZA MD Caregiver [address] [place] [address] PAUL ALEXANDER Next Of Kin Unknown [phone] [employer] Insurance Providers Payer Name Policy Number Subscriber Name Relationship Medicare [id number] Cheryl Lares 19 Self [facility] Sbc/b [id number] Cheryl Lares 19 Self Advance Directives Directive [...] at 1:00pm, in his office located at [address] [place] [address] [employer] [facility] [place] [address] . Follow up with Dr. Ballesteros in [...] F (96.8 - 99.1) Temperature (Calculated Celsius) 36.80973 degrees C (36.0 - 37.3) Pulse Rate [...] 03, 2014 12:00am 7.3 % N 0-9.0 WO-Pcm-X-Type Natriuretic Peptide March 09, 2014 4:25pm 170 [...] Has specimen been collected/obtained? Y Urine Specific Vesper November 03, 2014 7:30pm <=1.005 L - [...] N 4.5-11.0 Name: CHERYL LARES Unit #: [id number] : 1935 Sex: F Loc / Svc: SAM DOS: 10/08/14 Signed Report #: [id number] DIAGNOSTIC IMAGING REPORT TYPE OF EXAM: CT [...] completed 09/03/14 EMERGENCY DEPT VISIT completed 09/03/14 [id number]"INJECTION, KETOROLAC TROMETHAMINE, PER 15 MG" completed 09/03/14120532"INJECTION, ORPHENADRINE CITRATE, UP TO 60 MG" completed 09/03/14 INJECT SPINE LUMBAR/SACRAL completed 09/05/14 CESARIO ANAYA MD Encounters Encounter Location Date/Time Departed Emergency Room [facility] 11/03/14 5:09pm Registered Clinic [facility] 10/08/14 2:29pm Discharged Inpatient [facility] 09/05/14 2:25pm Departed Emergency Room [facility] 09/03/14 9:07am Recent Diagnosis
--- NOTE | 2017-01-22 01:08 | NUR ---
Fela mcneill in [place] - 01/22/17 at 0359 by [email or web address] COMPUTER DOWN TIME-REFER TO PAPER CHARTING
[2017-01-22 01:35] LABS: BASOPHILS % (AUTO) 0.5 % (0-2); EOSINOPHILS # (AUTO) 0.3 T/MM3 (0-0.5); EOSINOPHILS % (AUTO) 4.1 % (0-4); HCT - HEMATOCRIT 40.8 % (36-46); IMMATURE GRANULOCYTE # (AUTO) 0.01 T/MM3 (0.00-0.03); IMMATURE GRANULOCYTE % (AUTO) 0.1 % (0.0-0.5); LYMPHOCYTES # (AUTO) 2.6 T/MM3 (1-4.8); LYMPHOCYTES % (AUTO) 34.1 % (23-45); MEAN CORPUSCULAR HGB 29.5 UUG (26-34); MEAN CORPUSCULAR HGB CONC(MCHC 34.3 GM/DL (31-37); MEAN CORPUSCULAR VOLUME 86.1 UM3 (80-100); MEAN PLATELET VOLUME 9.8 UM3 (9.4-12.4); MONOCYTES # (AUTO) 0.6 T/MM3 (0-0.8); MONOCYTES % (AUTO) 7.5 % (0-9.0); NEUTROPHILS #(AUTO)-ABSOLUTE 4.1 T/MM3 (1.8-7.7); NEUTROPHILS % (AUTO) 53.7 % (33-66); RED BLOOD COUNT 4.74 M/MM3 (4.00-5.20); WBC - WHITE BLOOD COUNT 7.6 T/MM3 (4.5-11.0)
[2017-01-22 01:46] LABS: ALBUMIN 3.8 G/DL (3.5-5.0); ALBUMIN/GLOBULIN RATIO 1.5 RATIO (1.1-2.2); ALKALINE PHOSPHATASE 96 U/L (38-126); ALT (SGPT) 25 U/L (9-52); ANION GAP 13 MEQ/L (5-15); AST (SGOT) 24 U/L (14-36); BUN/CREATININE RATIO 24 RATIO (6-26); CALCIUM 9.2 MG/DL (8.4-10.2); CHLORIDE 102 MEQ/L (98-107); CO2 - CARBON DIOXIDE 29 MEQ/L (22-30); CREATININE 0.7 MG/DL (0.7-1.2); GLOMERULAR FILTRATION RATE 81; GLUCOSE 122 MG/DL (65-110); POTASSIUM 3.3 MEQ/L (3.6-5); SODIUM 144 MEQ/L (134-144); TOTAL PROTEIN 6.4 G/DL (6.3-8.2)
[2017-01-22 02:42] LABS: BLOOD, URINE TRACE-INTACT (NEGATIVE); COLOR,URINE YELLOW (YELLOW); LEUKOCYTE ESTERASE ,URINE TRACE (NEGATIVE); NITRITE,URINE NEGATIVE (NEGATIVE); UROBILINOGEN,URINE 0.2 EU/DL (NORMAL)
[2017-01-22 03:23] VITALS: BP 144/61; PULSE 64; RESP 22; TEMP 97.1; O2SAT 95
--- NOTE | 2017-01-22 03:23 | NUR ---
DEPART PT IS GIVEN DISMISSAL INSTRUCTIONS WITH VERBAL UNDERSTANDING. PT LEAVES AMBULATORY TO ED REGISTRATION DESK
== END 2017-01-22 03:23 | disposition home or self-care (01) ==
LOC: ED 00:33
DX: R00.1 Bradycardia, unspecified (principal); R00.2 Palpitations; E86.9 Volume depletion, unspecified; I10 Essential (primary) hypertension
CPT/HCPCS: 36415; 80053; 81003; 83735; 84484; 85025; 93005; 96360; 99284; J7030